=== PATIENT | male | born 1970 | race Caucasian/White ===

== ENCOUNTER → 2018-02-14 12:25 | Outpatient (CLI) | payer OTHER, SELFPAY | PROVIDERS: Family Provider Family Medicine; PCP Family Medicine; Visit Provider Family Medicine | DX: M79.642 Pain in left hand (principal); R20.0 Anesthesia of skin; R20.2 Paresthesia of skin | CPT/HCPCS: 95886; 95909 ==

== ENCOUNTER 2019-11-05 17:39 | Emergency (ER) | payer OTHER, SELFPAY ==
[2019-11-05 17:49] VITALS: BP 176/124; PULSE 94; RESP 22; TEMP 37; O2SAT 99
--- NOTE | 2019-11-05 18:15 | DI.RAD.S_ITS ---
PROCEDURE: XR RIBS LT MIN 3V W CXR1V INDICATIONS: rib pain TECHNIQUE: 2 views of the left ribs were acquired, along with a single view chest. COMPARISON: None. FINDINGS: Surgical changes and devices: None. Bones and chest wall: No fractures or dislocations. No suspicious bony lesions. Overlying soft tissues appear unremarkable. Lungs and pleura: No pleural effusions or pneumothorax. Lungs appear clear. Low lung volumes are noted. This causes a crowded appearance to the lung markings and limits evaluation. Mediastinum: Mediastinal contours appear normal. Heart size is normal. IMPRESSION: No displaced rib fractures are seen. No pneumothorax is seen. Dictated by: Lorenzo Clark M.D. on 11/05/2019 at 17:29 Approved by: Lorenzo Clark M.D. on 11/05/2019 at 17:30
[2019-11-05] MEDS: LIDOCAINE PATCH 1 EACH ADH..PATCH TOP (18:34)
[2019-11-05] MEDS: CYCLOBENZAPRINE 10 MG TABLET PO (18:36)
[2019-11-05] MEDS: KETOROLAC 60 MG/2 ML VIAL 30 MG IM (18:37)
[2019-11-05] MEDS: ACETAMINOPHEN 325 MG TABLET 650 MG PO (18:37)
--- NOTE | 2019-11-05 18:44 | PC.NURSE ---
Patient standing up in room, writhing in pain but pleasant. Medicated for pain as ordered. Significant other at bedside and supportive.
--- NOTE | 2019-11-05 18:47 | ED.CHESTPAIN ---
HPI - Chest Pain <MARK Mann - Last Filed: 11/05/19 22:31> General Chief Complaint: Chest Pain Stated Complaint: lt sided rib pain Time Seen by Provider: 11/05/19 17:48 Source: patient Mode of arrival: Ambulatory Limitations: no limitations History of Present Illness HPI narrative: This is a 49-year-old gentleman, nonsmoker, who presents to ED with significant other with nontraumatic left lower anterior and lateral discomfort which increases with movement, by touch, and breathing. Patient reports pain as 9/10 and very sharp and jabbing in character. Patient denies breathing difficulty, chest pain, fever, chills, rash, nausea or vomiting, or cold sweats. Patient reports he had done yard work and moving gravel yesterday. He did not have any pain yesterday but when after work today driving home he was starting to have severe pain. Patient also states his co-worker is self quarantine at this time due to COVID-19. Related Data Previous Rx's Medication Instructions Recorded lamotrigine 200 mg tablet 200 mg PO DAILY #90 tab 12/21/18 ibuprofen 600 mg tablet 600 mg PO Q8HP PRN #100 tab 05/08/19 cyclobenzaprine 10 mg PO BID PRN #10 tab 11/05/19 lidocaine 1 patch TOP DAILY #30 each 11/05/19 tramadol 50 mg PO BID PRN #7 tab 11/05/19 Allergies Allergy/AdvReac Type Severity Reaction Status Date / Time No Known Drug Allergies Allergy Unverified 10/17/19 10:12 Review of Systems <MARK Mann - Last Filed: 11/05/19 22:31> Review of Systems Narrative: General: Denies fever, chills, fatigue, malaise, sweats. HEENT: Denies sinus pain, ear pain, sore throat, difficulty swallowing, dizziness. Respiratory: Denies dyspnea, cough, wheezing, hemoptysis, sputum. Cardiovascular: Denies chest pain, palpitations, orthopnea, edema. Gastrointestinal: Denies nausea, vomiting, abdominal pain, diarrhea, constipation, melena. : Denies dysuria, frequency, incontinence, hematuria, urinary retention. Musculoskeletal: See HPI Skin: Denies rash, skin lesions, or other. Neurologic: Denies weakness, headache, numbness, change in speech, confusion, seizures, incoordination. Psychiatric: No concerning psychosocial issues. 12-point review of systems is negative except for those stated above. Patient History <MARK Mann - Last Filed: 11/05/19 22:31> Social History Smoking Status: Never smoker Smoking Status: Never smoker Substance Use Type: does not use Exam <MARK Mann - Last Filed: 11/05/19 22:31> Narrative Exam Narrative: General appearance: well developed, well nourished, in moderate distress due to pain, standing in the room to cope with discomfort. Head: normocephalic, atraumatic, no scalp lesions, non-tender. ENT: Hearing grossly intact. Nose without bleeding, purulent discharge. Mucous membrane moist, no mucosal lesion. Throat without erythema, tonsillar hypertrophy or exudate. Uvula in midline, airway patent. Neck/Thyroid: neck supple, full range of motion, no visible masses or meningeal signs. No JVD, non-tender without lymphadenopathy. Skin: no suspicious rashes, lesions over visible areas. Warm and dry and appropriate color for ethnicity. Heart: no clubbing, no cyanosis, no edema. S1 and S2 normal. RRR w/o murmurs, clicks, or bruits. Lungs: Breathing even and unlabored her taking shallow breaths due to pain. No stridor. No accessory muscles used. Able to speak in full sentences. Chest: normal shape and expansion. Abdomen: non-obese, non-distended. Neurologic: alert and oriented. Cognitive exam, SHOW HOST OR HOSTESS and PNS grossly intact on informal exam. Psych: good eye contact, normal affect. Initial Vital Signs Initial Vital Signs: Vital Signs Temperature 98.6 F 11/05/19 17:49 Pulse Rate 94 H 11/05/19 17:49 Respiratory Rate 22 11/05/19 17:49 Blood Pressure 176/124 H 11/05/19 17:49 Pulse Oximetry 99 11/05/19 17:49 Chest Chest: normal inspection of the chest, No crepitus, localized rib tenderness with anteroposterior compression, No mass, tenderness (Left lower anterior and lateral chest wall) and No rash <Angie Meza DO - Last Filed: 11/06/19 00:30> Initial Vital Signs Initial Vital Signs: Vital Signs Temperature 98.6 F 11/05/19 17:49 Pulse Rate 94 H 11/05/19 17:49 Respiratory Rate 22 11/05/19 17:49 Blood Pressure 176/124 H 11/05/19 17:49 Pulse Oximetry 99 11/05/19 17:49 Scores <Luke RichHoracioHomeMARK gr - Last Filed: 11/05/19 22:31> GCS Rachael coma scale eye opening: Spontaneous Rachael coma scale verbal response: Orientated Rachael coma scale motor response: Obey commands Miranda coma scale total score: 15 Course <Luke RichMARK Jeong - Last Filed: 11/05/19 22:31> Orders Ordered: ED Orders 11/05/19 18:15 XR ribs LT min 3V w CXR1V Stat Discontinued Medications Acetaminophen (Tylenol) 650 mg PO NOW ONE Stop: 11/05/19 18:16 Last Admin: 11/05/19 18:37 Dose: 650 mg Documented by: TRACY Cyclobenzaprine HCl (Flexeril) 10 mg PO NOW ONE Stop: 11/05/19 18:16 Last Admin: 11/05/19 18:36 Dose: 10 mg Documented by: TRACY Ketorolac Tromethamine (Toradol) 30 mg IM NOW ONE Stop: 11/05/19 18:16 Last Admin: 11/05/19 18:37 Dose: 30 mg Documented by: TRACY Lidocaine (Lidoderm) 1 each TOP NOW ONE Stop: 11/05/19 18:16 Last Admin: 11/05/19 18:34 Dose: 1 each Documented by: TRACY Vital Signs Vital signs: Vital Signs - 8 hr 11/05/19 17:49 11/05/19 19:35 Temperature 98.6 F Pulse Rate 94 H 69 Respiratory Rate 22 19 Blood Pressure 176/124 H Blood Pressure [Right Arm] 170/109 H Pulse Oximetry 99 98 <Angie Meza DO - Last Filed: 11/06/19 00:30> Orders Ordered: ED Orders 11/05/19 18:15 XR ribs LT min 3V w CXR1V Stat Discontinued Medications Acetaminophen (Tylenol) 650 mg PO NOW ONE Stop: 11/05/19 18:16 Last Admin: 11/05/19 18:37 Dose: 650 mg Documented by: TRACY Cyclobenzaprine HCl (Flexeril) 10 mg PO NOW ONE Stop: 11/05/19 18:16 Last Admin: 11/05/19 18:36 Dose: 10 mg Documented by: TRACY Ketorolac Tromethamine (Toradol) 30 mg IM NOW ONE Stop: 11/05/19 18:16 Last Admin: 11/05/19 18:37 Dose: 30 mg Documented by: TRACY Lidocaine (Lidoderm) 1 each TOP NOW ONE Stop: 11/05/19 18:16 Last Admin: 11/05/19 18:34 Dose: 1 each Documented by: TRACY Vital Signs Vital signs: Vital Signs - 8 hr 11/05/19 17:49 11/05/19 19:35 Temperature 98.6 F Pulse Rate 94 H 69 Respiratory Rate 22 19 Blood Pressure 176/124 H Blood Pressure [Right Arm] 170/109 H Pulse Oximetry 99 98 MDM - Chest Pain <MARK Mann - Last Filed: 11/05/19 22:31> Differential Diagnosis Differential diagnosis: Likely fracture of rib, pneumothorax, costochondritis and chest pain Medical Records Data Attestation: I reviewed the patient's medical records. Imaging Data Chest x-ray: Radiologist's Impression: [address] [address] XRay Report Signed Patient: Diego Green [facility]#: [id number] : 1970Acct:[id number] Age/Sex: 49 / MDate of Service: 11/05/19 Loc: ED Accession Number: [id number] Procedure: XR ribs LT min 3V w CXR1V Ordering Provider: Luke Rodriguez PROCEDURE: XR RIBS LT MIN 3V W CXR1V INDICATIONS: rib pain TECHNIQUE: 2 views of the left ribs were acquired, along with a single view chest. COMPARISON: None. FINDINGS: Surgical changes and devices: None. Bones and chest wall: No fractures or dislocations. No suspicious bony lesions. Overlying soft tissues appear unremarkable. Lungs and pleura: No pleural effusions or pneumothorax. Lungs appear clear. Low lung volumes are noted. This causes a crowded appearance to the lung markings and limits evaluation. Mediastinum: Mediastinal contours appear normal. Heart size is normal. IMPRESSION: No displaced rib fractures are seen. No pneumothorax is seen. Dictated by: Lorenzo Clark M.D. on 11/05/2019 at 17:29 Approved by: Lorenzo Clark M.D. on 11/05/2019 at 17:30 MDM Narrative Medical decision making narrative: This is a 49-year-old male who presents to ED with left lower anterior and lateral chest wall tenderness. Patient denies associated cardiac symptoms such as breathing difficulty, nausea/vomiting, cold sweats, lightheadedness. Considered cardiac chest pain but Physical exam is more consistent with musculoskeletal discomfort. Chest wall was tender to palpate by light touch, with movement, and taking deep breaths. Patient worked on yard and moving gravels yesterday with repeated motion. Patient medicated with IM Toradol, Flexeril, Tylenol, lidocaine patch which he finds to be helpful with discomfort discharged to home with prescriptions. Rib and chest x-ray does not show acute findings such as pneumothorax, fracture, pneumonia with normal heart size. Return precautions were discussed with patient and patient verbalized understanding and agreement with the treatment plan. Discharge Plan Departure Patient Disposition: Home Clinical Impression: Rib pain on left side, Costochondritis, acute Discharge Date/Time: 11/05/19 19:50 Instructions: DI for Costochondritis Activity Restrictions/Additional Instructions: You have been diagnosed with [costochondritis. Rib x-ray does not show acute findings in her ribs or lungs. Your blood pressure was elevated in ED. This may due to pain but please follow-up with Dr. Hernandez.]. What to do: *Take your medications as directed. You were treated with IM Toradol, Tylenol, Lidocaine Patch and Flexeril in ED with good result. Please continue to take Tylenol and ibuprofen/Motrin. You can take Tylenol 2 tabs 3 to 4 times a day as needed for pain. Ibuprofen 400-600 mg 3 times a day with food. Please use lidocaine patch on affected site on for 12 hours and off for 12 hours. If lidocaine patch is not covered by her insurance, please buy [id number] 4% lidocaine patch. Please use muscle relaxant Flexeril as needed. If your pain is not well managed with the above medications, you can use tramadol for severe pain. Tramadol and Flexeril may cause drowsiness so please take precaution such as not driving, drink alcohol or operating heavy equipments. Also he can cause constipation so please take appropriate measures. Flexeril, lidocaine,Tramadol have transmitted to [facility] in [facility]. *Follow up with your primary care provider in 2-3 days, call for an appointment. Let them know you were seen in the ED and that we asked you to be seen in follow up. *Return to ED if you have any new, worsening, or concerning symptoms, such as [breathing difficulty, chest pain, unable to tolerate fluids, fever, or any acute concerns]. Prescriptions: New cyclobenzaprine 10 mg tablet 10 mg PO BID PRN (Reason: muscle spasm) Qty: 10 RF: 0 lidocaine 5 % adhesive patch,medicated 1 patch TOP DAILY Qty: 30 RF: 0 tramadol 50 mg tablet 50 mg PO BID PRN (Reason: pain) Qty: 7 RF: 0 No Action lamotrigine [Lamictal] 200 mg tablet 200 mg PO DAILY Qty: 90 RF: 3 ibuprofen 600 mg tablet 600 mg PO Q8HP PRN (Reason: pain) Qty: 100 RF: 2 Referrals: Dawood Hernandez MD [Primary Care Provider] -
[2019-11-05 19:35] VITALS: BP 170/109; PULSE 69; RESP 19; O2SAT 98
== END 2019-11-05 19:50 | disposition home or self-care (01) ==
PROVIDERS: Emergency Provider Nurse Practitioner Family; Family Provider Family Medicine; PCP Family Medicine
DX: R07.81 Pleurodynia (principal); M94.0 Chondrocostal junction syndrome [Tietze]
CPT/HCPCS: 71101; 96372; 99283; J1885

== ENCOUNTER → 2020-02-09 09:26 | Outpatient (CLI) | payer OTHER, SELFPAY ==
[2020-02-09 11:09] LABS: Add Manual Diff / Slide Review NO; Basophils Absolute Auto 0 /uL (0-100); Basophils Percent Auto 0.5 % (0-2); Eosinophils Absolute Auto 200 /uL (0-450); Eosinophils Percent Auto 3.4 % (2-4); Hematocrit 45.6 % (41-53); Hemoglobin 15.8 g/dL (13.5-17.5); Lymphocytes Absolute Auto 2200 /uL (1100-4500); Lymphocytes Percent Auto 34.4 % (25-40); Mean Corpuscular HGB Conc 34.7 % (30-36); Mean Corpuscular Hemoglobin 32.1 PG (26-34); Mean Corpuscular Volume 92.5 fL (80-100); Monocytes Absolute Auto 600 /uL (0-900); Monocytes Percent Auto 9.9 % (3-14); Neutrophils Absolute Auto 3300 /uL (1500-7000); Neutrophils Percent Auto 51.8 % (50-75); Platelet Count 294 X10^3/uL (150-400); Red Blood Cell Count 4.93 X10^6/uL (4.5-5.9); Red Cell Distribution Width 12.9 % (11.6-14.8); White Blood Cell Count 6.3 X10^3/uL (4.5-11.0)
[2020-02-09 11:40] LABS: Alanine Aminotransferase 27 IU/L (<50); Albumin 4.5 g/dL (3.5-5.0); Albumin Globulin Ratio 1.8 (1.0-2.8); Alkaline Phosphatase 47 U/L (38-126); Aspartate Aminotransferase 29 IU/L (17-59); Bilirubin Total 0.6 mg/dL (0.2-1.3); Blood Urea Nitrogen 13 mg/dL (9-20); Calcium 9.8 mg/dL (8.4-10.2); Carbon Dioxide 30 mmol/L (22-32); Chloride 101 mmol/L (98-107); Cholesterol 218 mg/dL (140-199); Estimated Glomerular Filt Rate > 60.0 mL/min (>60); Globulin 2.5 g/dL (1.7-4.1); Glucose 83 mg/dL (70-100); HDL Cholesterol 38 mg/dL (40-60); HEMOLYSIS 24 (0-50); LDL Cholesterol Calculated 157 mg/dL (<100); Potassium 4.6 mmol/L (3.4-5.1); Sodium 138 mmol/L (137-145); Triglycerides 116 mg/dL (35-150)
[2020-02-10 12:38] LABS: SARS CoV19 IgG Negative (Negative)
== END ==
PROVIDERS: Family Provider Family Medicine; PCP Family Medicine; Referring Provider Family Medicine; Visit Provider Family Medicine
DX: S39.012A Strain of muscle, fascia and tendon of lower back, initial encounter (principal); Z03.818 Encounter for observation for suspected exposure to other biological agents ruled out; Z87.898 Personal history of other specified conditions
CPT/HCPCS: 36415; 80053; 80061; 85025; 86769; G0103

== ENCOUNTER → 2020-09-22 16:48 | Outpatient (CLI) | payer OTHER, SELFPAY ==
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
== END ==
PROVIDERS: Family Provider Family Medicine; PCP Family Medicine; Referring Provider Physician Assistant; Visit Provider Physician Assistant
DX: S16.1XXA Strain of muscle, fascia and tendon at neck level, initial encounter (principal); M25.551 Pain in right hip; M54.2 Cervicalgia; V89.2XXA Person injured in unspecified motor-vehicle accident, traffic, initial encounter
CPT/HCPCS: 72040; 73502

== ENCOUNTER → 2020-10-22 08:21 | Outpatient (CLI) | payer OTHER, SELFPAY ==
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
== END ==
PROVIDERS: Family Provider Family Medicine; PCP Family Medicine; Referring Provider Family Medicine; Visit Provider Family Medicine
DX: S39.012D Strain of muscle, fascia and tendon of lower back, subsequent encounter (principal); S73.101D Unspecified sprain of right hip, subsequent encounter; M47.816 Spondylosis without myelopathy or radiculopathy, lumbar region
CPT/HCPCS: 72110

== ENCOUNTER → 2020-11-02 06:39 | Outpatient (CLI) | payer OTHER, SELFPAY ==
--- NOTE | 2020-11-02 06:43 | DI.MRI.S_ITS ---
PROCEDURE: MR LUMBAR SPINE WO CON INDICATIONS: Evaluate back pain with right radiculopathy TECHNIQUE: Noncontrast sagittal T1 spin echo and T2 fast echo, sagittal STIR, axial T1 and T2 fast spin echo through the lumbar spine. In cases with scoliosis, additional coronal T2 fast spin echo may be performed. COMPARISON: None. FINDINGS: Image quality: Excellent. Alignment and Curvature: There is normal bony alignment. Bone Marrow: Marrow is of normal overall signal. No acute vertebral body compression fractures. Spinal Cord: Conus medullaris terminates at the L1 level. Visualized cord demonstrates normal signal and size. Paraspinous Soft Tissues: No paravertebral masses. T12-L1: Normal appearance. L1-L2: Normal appearance. L2-L3: Normal appearance. L3-L4: Loss of disc signal. Minimal, diffuse disc bulge. No central stenosis. Mild left neural foraminal narrowing. No neural compression. L4-L5: Loss of disc signal. Mild, diffuse disc bulge. Small central disc protrusion. Mild bilateral facet hypertrophy. No central stenosis. Mild bilateral neural foraminal narrowing. No neural compression. Fissure noted in the posterior annulus. L5-S1: Loss of disc signal and slight loss of disc height. Mild, diffuse disc bulge. Mild bilateral facet hypertrophy. No central stenosis. Small right foraminal disc protrusion. Disc protrusion abuts and slightly flattens the exiting right L5 nerve root. Moderate bilateral neural foraminal narrowing. Fissure noted in the posterior annulus. IMPRESSION: 1. Multilevel degenerative disc disease. 2. Multilevel facet arthropathy. 3. No severe central canal narrowing. 4. No severe neural foraminal narrowing. 5. Right foraminal L5-S1 disc protrusion which abuts and slightly compresses the exiting right L5 nerve root. Please correlate with clinical data. 6. L4-L5 and L5-S1 disc annulus fissures. Dictated by: Sivan Ta MD, PhD on 11/02/2020 at 10:23 Approved by: Sivan Ta MD, PhD on 11/02/2020 at 10:29
== END ==
PROVIDERS: PCP Family Medicine; Referring Provider Family Medicine; Visit Provider Family Medicine
DX: M51.16 Intervertebral disc disorders with radiculopathy, lumbar region (principal); M51.17 Intervertebral disc disorders with radiculopathy, lumbosacral region; M47.26 Other spondylosis with radiculopathy, lumbar region; M48.061 Spinal stenosis, lumbar region without neurogenic claudication; M48.07 Spinal stenosis, lumbosacral region; S73.101D Unspecified sprain of right hip, subsequent encounter; S39.012D Strain of muscle, fascia and tendon of lower back, subsequent encounter
CPT/HCPCS: 72148

== ENCOUNTER → 2020-11-02 08:09 | Outpatient (CLI) | payer OTHER, SELFPAY ==
[2020-11-02] MEDS: COVID-19 VACC #1, MRNA(MOD) 100 MCG/0.5 ML VIAL IM (08:17)
== END ==
PROVIDERS: PCP Family Medicine; Visit Provider Internal Medicine
DX: Z23 Encounter for immunization (principal)
CPT/HCPCS: 0011A; 91301

== ENCOUNTER → 2020-12-08 07:37 | Outpatient (CLI) | payer OTHER, SELFPAY ==
[2020-12-08] MEDS: COVID-19 VACC #2, MRNA(MOD) 100 MCG/0.5 ML VIAL IM (07:44)
== END ==
PROVIDERS: PCP Family Medicine; Visit Provider Internal Medicine
DX: Z23 Encounter for immunization (principal)
CPT/HCPCS: 0012A; 91301

== ENCOUNTER → 2021-02-15 08:22 | Outpatient (CLI) | payer OTHER, SELFPAY ==
[2021-02-15 12:25] LABS: COVID19 -Nasal RAPID Negative (Negative)
== END ==
PROVIDERS: PCP Family Medicine; Visit Provider Physical Medicine & Rehabilitation
DX: Z20.822 Contact with and (suspected) exposure to COVID-19 (principal)
CPT/HCPCS: 87635; C9803

== ENCOUNTER 2021-02-17 13:47 | Outpatient (CLI) | payer OTHER, SELFPAY ==
[2021-02-17] VITALS (9 sets, daily range): BP systolic 133–175; BP diastolic 92–115; PULSE 80–97; RESP 12–18; TEMP 36.7; O2SAT 93–99
--- NOTE | 2021-02-17 13:51 | DI.RAD.S_ITS ---
PROCEDURE: PAIN L/S TRANSFORAMINAL INJECT INDICATIONS: SPONDYLOSIS COMPARISON: [facility], CR, XR LUMBAR SPINE 2-3V, 10/22/2020, 8:31. [facility], MR, MR LUMBAR SPINE WO CON, 11/02/2020, 7:01. FINDINGS: Fluoroscopic spot filming was performed to verify placement of a spinal needle at the L5-S1 level, as labeled on the films. Appropriate location of the needle tip was confirmed by injection of iodinated contrast. IMPRESSION: No significant intraprocedural abnormality. Dictated by: Lorenzo Clark M.D. on 02/17/2021 at 14:15 Approved by: Lorenzo Clark M.D. on 02/17/2021 at 14:15
[2021-02-17] MEDS: fentaNYL 100 MCG/2 ML INJ 50 MCG IV (14:20)
[2021-02-17] MEDS: IOPAMIDOL 15 ML VIAL 3 ML INJ (14:25)
[2021-02-17] MEDS: BUPIVACAINE 0.25% (PF) VIAL 2 ML INJ (14:25)
[2021-02-17] MEDS: BETAMETHASONE 30 MG/5 ML MDV 6 MG INJ (14:25)
[2021-02-17] MEDS: DEXAMETHASONE 10 MG/ML VIAL 20 MG INJ (14:25)
[2021-02-17] MEDS: MIDAZOLAM 5 MG/5 ML VIAL IV (14:30)
--- NOTE | 2021-02-17 14:40 | P.PCN_ITS ---
Date/Time/Diagnoses Date of procedure: 02/17/21 Time of procedure: 14:40 Pre-procedure diagnosis: FORAMINAL STENOSIS WITH LE SYMPTOMS Post-procedure diagnosis: same Procedure Notes Procedure: 1. FLUOROSCOPICALLY GUIDED CONTRAST CONTROLLED TRANSFORAMINAL EPIDURAL STEROID INJECTION - RIGHT L5/S1 TFESI Indications: Diego is referred by Dr. Solorzano for treatment of Foraminal Stenosis with Right LE Symptoms Physician: Pedro Turk Total Fluoroscopy time (seconds): 12 Total sedation minutes: 13 Complications: none Procedure in detail & Post-procedure care: FINDINGS Foraminal Nerve Root Compression secondary to disc disease and facet hypertrophy DESCRIPTION OF PROCEDURE Following review of allergy and review of potential side effects and complications, including, but not necessarily limited to, infection, allergic reaction, local tissue breakdown, stroke, temporary or permanent nerve injury, paralysis, and possible , the patient indicated that the patient understood and agreed to proceed. An informed consent document was signed by the patient, witnessed by a nurse, and placed in the patient's chart. Additionally, other treatment options including medications, modalities, and physical therapy were reviewed with the patient. After review of previous anaesthesic history and IV conscious sedation the patient was deemed safe to proceed with today?s procedure with IV conscious sedation as ASA class II designation. Safety time-out was performed to confirm patient ID, procedure to be performed and site of procedure. IV sedation was accomplished with a combination of 3mg of Versed and 50mcg of Fentanyl was administered by the RN after DO order, titrated to patient comfort during the course of the procedure while the patient remained responsive to all verbal commands In the prone position following sterile prep and drape of the lumbar region, the right L5/S1 posterior neuroforamen was identified fluoroscopically. The skin was anesthetized via a 25-gauge 1.5-inch needle with 1% lidocaine solution. At this point, a 25-gauge 3.5-inch spinal needle was atraumatically introduced and advanced under fluoroscopic guidance through the posterior right L5/S1 neuroforamen to approximately the anterior aspect of the canal. Depth was confirmed on lateral view. Following negative aspiration, injection of approximately 1.5cc of Isovue 200 under live fluoroscopy in the AP view confirmed excellent flow along the nerve root, into the epidural space without vascular or intrathecal uptake observed Radiological data, including multiple fluoroscopic views of the lumbosacral spine, reveal a spinal needle at the right L5/S1 posterior neuroforamen. Subsequent views show flow of contrast material flowing superiorly and inferiorly along the nerve root confirming epidural flow. Subsequently, a test dose of 1.5 cc of 1% lidocaine solution was administered and patient was observed for two minutes for signs or symptoms of complications, including abdominal pain, shortness of breath, bilateral upper or lower extremity weakness, nausea and vomiting, prior to steroid injection. At this point, a total of 3cc or 20mg of dexamethasone and 6mg of betamethasone was injected without incident. The procedure tolerated the procedure well without signs or symptoms of complications prior to transfer to the recovery area continued monitoring without incident. The patient was then transferred to the recovery area where they were observed for an appropriate time after the injection. The patient reported a VAS score of 7 prior to the procedure and a post- procedure VAS of 0. POST OP INSTRUCTIONS The patient was provided a Pain Log to continue to record their response to the target-specific procedure prior to follow-up visit with their referring physician. Additionally, specific post-injection care instructions and a contact number to our office were provided if concerns arise regarding possible complications associated with the procedure are suspected.
== END 2021-02-17 15:30 | disposition home or self-care (01) ==
LOC: RAD 13:50
PROVIDERS: PCP Family Medicine; Referring Provider Physical Medicine & Rehabilitation; Visit Provider Physical Medicine & Rehabilitation
DX: M48.07 Spinal stenosis, lumbosacral region (principal); M51.17 Intervertebral disc disorders with radiculopathy, lumbosacral region
CPT/HCPCS: 64483; 99152; J0702; J1100; J2250; J3010

== ENCOUNTER → 2021-05-17 09:23 | Outpatient (CLI) | payer OTHER, SELFPAY ==
[2021-05-17 13:23] LABS: COVID19 -Nasal RAPID Negative (Negative)
== END ==
PROVIDERS: PCP Family Medicine; Referring Provider Physical Medicine & Rehabilitation; Visit Provider Physical Medicine & Rehabilitation
DX: Z20.822 Contact with and (suspected) exposure to COVID-19 (principal)
CPT/HCPCS: 87635; C9803

== ENCOUNTER 2021-05-19 07:23 | Outpatient (CLI) | payer OTHER, SELFPAY ==
[2021-05-19] VITALS (9 sets, daily range): BP systolic 151–183; BP diastolic 101–110; PULSE 76–84; RESP 15–20; TEMP 36.6; O2SAT 95–100
--- NOTE | 2021-05-19 07:27 | DI.RAD.S_ITS ---
PROCEDURE: PAIN L INTERLAMINAR/CAUDAL INJ INDICATIONS: SPONDYLOSIS COMPARISON: [facility], XA, PAIN L/S TRANSFORAMINAL INJECT, 02/17/2021, 14:26. FINDINGS: Fluoroscopic spot filming was performed to verify placement of a spinal needle at the L5-S1 level, as labeled on the films. Appropriate location of the needle tip was confirmed by injection of iodinated contrast. IMPRESSION: No significant intraprocedural abnormality. Dictated by: Lorenzo Clark M.D. on 05/19/2021 at 9:49 Approved by: Lorenzo Clark M.D. on 05/19/2021 at 9:50
[2021-05-19] MEDS: MIDAZOLAM 5 MG/5 ML VIAL IV (08:15)
[2021-05-19] MEDS: fentaNYL 100 MCG/2 ML INJ (08:15)
[2021-05-19] MEDS: BUPIVACAINE 0.25% (PF) VIAL 30 ML (08:21)
[2021-05-19] MEDS: IOPAMIDOL 15 ML VIAL INJ (08:21)
[2021-05-19] MEDS: DEXAMETHASONE 10 MG/ML VIAL 20 MG (08:21)
[2021-05-19] MEDS: BETAMETHASONE 30 MG/5 ML MDV (08:22)
--- NOTE | 2021-05-19 08:33 | PM.PROC.IR.1 ---
Date/Time/Diagnoses Date of procedure: 05/19/21 Time of procedure: 08:33 Pre-procedure diagnosis: 1. HNP WITH RADICULAR FEATURES, 2. MULTILEVEL CENTRAL STENOSIS, Post-procedure diagnosis: same Procedure Notes Procedure: 1. FLUOROSCOPICALLY GUIDED CONTRAST CONTROLLED INTERLAMINAR EPIDURAL STEROID INJECTION - L5/S1 Indications: Diego is referred by Dr. Solorzano for treatment of Bilateral Foraminal Stenosis L>R LE symptoms. Physician: Pedro Turk Total Fluoroscopy time (seconds): 5 Total sedation minutes: 12 Complications: none Procedure in detail & Post-procedure care: FINDINGS Multilevel Central Spinal Stenosis with Nerve Root Compression DESCRIPTION OF PROCEDURE Fluoroscopically guided, contrast-controlled L5/S1 translaminar epidural steroid injection. Following review of allergy and review of potential side effects and complications, including, but not necessarily limited to, infection, allergic reaction, local tissue breakdown, temporary as well as permanent nerve injury, paralysis, stroke and possible , the patient indicated that the patient understood and agreed to proceed. An informed consent document was signed by the patient, witnessed by a nurse, and placed in the patient's chart. Additionally, other treatment options including modalities, medications, and physical therapy were reviewed with the patient. After review of previous anaesthesic history and IV conscious sedation the patient was deemed safe to proceed with today?s procedure with IV conscious sedation as ASA class II designation. Safety time-out was performed to confirm patient ID, procedure to be performed and site of procedure. IV sedation was accomplished with a combination of 2mg of Versed and 50mcg of Fentanyl administered by the RN after DO order, titrated to patient comfort during the course of the procedure while the patient remained responsive to all verbal commands. In the prone position, following sterile prep and drape of the lumbar region, the L5/S1 translaminar space was identified fluoroscopically. The skin was anesthetized via a 25-gauge, 1.5-inch needle with 1% lidocaine solution. At this point, a 22-gauge short bevel spinal needle was atraumatically introduced and advanced under fluoroscopic guidance into the region of the L5/S1 translaminar space. Depth was confirmed on lateral view. Radiological data, including multiple fluoroscopic views of the lumbar spine, reveal a spinal needle at the L5/S1 translaminar space. Lateral views then show placement of the needle in the epidural space. Subsequent views show contrast material flowing superiorly and inferiorly in the epidural space. No vascular or intrathecal uptake is observed. At this point, using loss of resistance technique with saline and air, the epidural space was entered. This was confirmed following negative aspiration with injection of approximately 1.5cc of Isovue 200, showing excellent epidural flow without vascular or intrathecal uptake. At this point, 1cc of 1% lidocaine solution combined with 4cc or 20mg of dexamethasone and 12mg of betamethasone was injected without incident. The patent tolerated the procedure without signs of symptoms of complications prior to transfer to the recovery area for further monitoring. The patient was then transferred to the recovery area where they were observed for an appropriate period of time after the injection. The patient reported a VAS score of 6 prior to the procedure and a post-procedure VAS of 0. POST OP INSTRUCTIONS The patient was provided a Pain Log to continue to record their response to the target-specific procedure prior to follow-up visit with their referring physician. Additionally, specific post-injection care instructions and a contact number to our office were provided if concerns arise regarding possible complications associated with the procedure are suspected.
== END 2021-05-19 08:48 | disposition hospice, home (50) ==
LOC: RAD 07:25
PROVIDERS: PCP Family Medicine; Referring Provider Physical Medicine & Rehabilitation; Visit Provider Physical Medicine & Rehabilitation
DX: M51.17 Intervertebral disc disorders with radiculopathy, lumbosacral region (principal); M48.07 Spinal stenosis, lumbosacral region
CPT/HCPCS: 62323; 99152; J0702; J1100; J2250; J3010

== ENCOUNTER 2021-06-08 10:06 | Emergency (ER) | payer OTHER, SELFPAY ==
[2021-06-08] VITALS (9 sets, daily range): BP systolic 155–196; BP diastolic 102–114; PULSE 83–97; RESP 16–21; TEMP 37.1; O2SAT 95–98; BMI 30.8
--- NOTE | 2021-06-08 10:15 | DI.RAD.S_ITS ---
PROCEDURE: XR CHEST 1V INDICATIONS: chest pain TECHNIQUE: One view of the chest was acquired. COMPARISON: [facility], , CHEST 2 VIEW, 12/15/2009, 11:38. FINDINGS: Surgical changes and devices: None. Lungs and pleura: Lungs are clear. No pleural effusions or pneumothorax. Mediastinum: Mediastinal contours appear normal. The cardiac silhouette is upper limits of normal. Bones and chest wall: No suspicious bony lesions. Overlying soft tissues appear unremarkable. IMPRESSION: No acute cardiopulmonary abnormality. Dictated by: Vernon Garcia M.D. on 06/08/2021 at 10:42 Approved by: Vernon Garcia M.D. on 06/08/2021 at 10:43
[2021-06-08 10:44] LABS: Add Manual Diff / Slide Review NO; Basophils Absolute Auto 0 /uL (0-100); Basophils Percent Auto 0.6 % (0-2); Eosinophils Absolute Auto 200 /uL (0-450); Eosinophils Percent Auto 2.4 % (2-4); Hematocrit 45.8 % (41-53); Hemoglobin 15.6 g/dL (13.5-17.5); Lymphocytes Absolute Auto 2100 /uL (1100-4500); Lymphocytes Percent Auto 31.9 % (25-40); Mean Corpuscular HGB Conc 34.1 % (30-36); Mean Corpuscular Hemoglobin 31.1 PG (26-34); Mean Corpuscular Volume 91.1 fL (80-100); Monocytes Absolute Auto 500 /uL (0-900); Monocytes Percent Auto 8.3 % (3-14); Neutrophils Absolute Auto 3800 /uL (1500-7000); Neutrophils Percent Auto 56.8 % (50-75); Platelet Count 302 X10^3/uL (150-400); Red Blood Cell Count 5.03 X10^6/uL (4.5-5.9); Red Cell Distribution Width 13.2 % (11.6-14.8); White Blood Cell Count 6.6 X10^3/uL (4.5-11.0)
[2021-06-08 10:53] LABS: Alanine Aminotransferase 24 IU/L (<50); Albumin 4.6 g/dL (3.5-5.0); Albumin Globulin Ratio 1.7 (1.0-2.8); Alkaline Phosphatase 59 U/L (38-126); Aspartate Aminotransferase 24 IU/L (17-59); BUN Creatinine Ratio 13.2 (6-22); Bilirubin Total 0.6 mg/dL (0.2-1.3); Blood Urea Nitrogen 15 mg/dL (9-20); Calcium 9.3 mg/dL (8.4-10.2); Carbon Dioxide 28 mmol/L (22-32); Chloride 102 mmol/L (98-107); Creatine Kinase 77 U/L (55-170); Estimated Glomerular Filt Rate > 60.0 mL/min (>60); Globulin 2.7 g/dL (1.7-4.1); Glucose 94 mg/dL (70-100); HEMOLYSIS < 15 (0-50); Lipase 46 U/L (23-300); Potassium 4.3 mmol/L (3.4-5.1); Sodium 139 mmol/L (137-145); Total Protein 7.3 g/dL (6.3-8.2)
[2021-06-08 11:05] LABS: Troponin I < 0.012 ng/mL (0.01-0.034)
--- NOTE | 2021-06-08 11:16 | ED.GENADULT ---
HPI - General Adult General Chief complaint: Hypertension Stated complaint: High BP- referred by Dr. Solorzano Time Seen by Provider: 06/08/21 11:15 Source: patient and family Mode of arrival: Ambulatory Limitations: no limitations History of Present Illness HPI narrative: This is a 51-year-old male who presents with hypertension and referred by his primary care offices. Patient states he does not have a known history of hypertension. He had an office visit 3 weeks ago with pain management and he was told it was mildly high. Presented yesterday for shoulder surgery for a torn rotator cuff and biceps tendon and his pressure was 163/113 he received 2 doses of Valium and a dose of pain medication and continued to be elevated so his surgery was canceled. He called Dr. Turner who recommend he monitor and got number such as 173/120 with 3 different causes including an arm cuff. Today he continued to be high and they referred him here. Patient states he has had a mild headache at times but denies any other symptoms. No chest pain, no shortness of breath, no nausea or vomiting. No diaphoresis. No swelling in his extremities. No lightheadedness or passing out. Does have pain in his shoulder secondary to his injury. He has been taking ibuprofen as needed with improvement during the day but difficulty with sleeping. He takes Lamictal daily as an antidepressant. He has had prior orthopedic surgeries but no cardiac history. No allergies to medications. No tobacco, alcohol or illicit. He is accompanied by his today. Dr. Solorzano is his PCP. Related Data Previous Rx's Medication Instructions Recorded ibuprofen 600 mg tablet 600 mg PO Q8HP PRN #100 tab 05/08/19 lamotrigine 200 mg tablet 200 mg PO DAILY #90 tab 02/06/20 (Lamictal) diazepam 10 mg tablet (Valium) 10 mg PO .COMPLEX PRN #10 tab 05/11/21 hydrochlorothiazide 25 mg tablet 25 mg PO DAILY #10 tab 06/08/21 Allergies Allergy/AdvReac Type Severity Reaction Status Date / Time No Known Drug Allergies Allergy Verified 06/08/21 10:28 Review of Systems Review of Systems ROS Unobtainable: All systems reviewed & are unremarkable except as noted in HPI and below Patient History Medical History Back pain with radiculopathy Blepharitis of both upper and lower eyelid of left eye Cyclothymia Herniated nucleus pulposus, L5-S1, right Left shoulder strain Lumbar radiculopathy Other and unspecified hyperlipidemia (03/01/11) Plantar wart, left foot Sprain of right hip Trapezius muscle spasm Work related injury Surgical History H/O hand surgery Social History Smoking Status: Never smoker Smoking Status: Never smoker alcohol intake frequency: 0-2 drinks per day Substance Use Type: does not use Exam Narrative Exam Narrative: GENERAL: Alert and oriented x three, male in mild distress. HEENT: Head normocephalic, atraumatic, EOMI, pupils reactive, face symmetric, moist mucous membranes NECK: Supple, full range of motion CARDIOVASCULAR: Regular rate and rhythm without murmurs, rubs or gallops. RESPIRATORY: Breath sounds equal bilaterally, no wheezes rales or rhonchi. ABDOMEN: Soft, nontender. Normoactive bowel sounds all 4 quadrants. No guarding or rebound, rigidity, no mass : No CVA tenderness EXTREMITIES: Normal range of motion, no edema. Neurovascularly intact NEUROLOGICAL: Cranial nerves II through XII grossly intact. Moving all extremities SKIN: Warm, dry, no petechiae, no rashes or lesions. Initial Vital Signs Initial Vital Signs: Vital Signs Temperature 98.8 F 06/08/21 10:10 Pulse Rate 97 H 06/08/21 10:10 Respiratory Rate 16 06/08/21 10:10 Blood Pressure 196/114 H 06/08/21 10:10 Pulse Oximetry 98 06/08/21 10:10 Scores HEART Score Heart Score history: Slightly Suspicious Heart Score EKG: Non-Specific repolarization disturbance Heart Score Age: 45-64 years old Heart Score risk factors: No known risk factors Heart Score troponin: < or = to normal limit Heart Score Total: 2 Course Orders Ordered: ED Orders 06/08/21 10:15 XR chest 1V Stat EKG-12 Lead Stat 06/08/21 10:30 Complete Blood Count AUTO DIFF Stat Comprehensive Metabolic Panel Stat Lipase Stat Troponin & CK Cardiac Panel Stat Discontinued Medications Hydrochlorothiazide (Hydrochlorothiazide 25 Mg Tablet) 25 mg PO NOW ONE Stop: 06/08/21 11:45 Last Admin: 06/08/21 11:56 Dose: 25 mg Documented by: AUPDIKE Vital Signs Vital signs: Vital Signs - 8 hr 06/08/21 11:00 06/08/21 11:15 06/08/21 11:30 Pulse Rate 91 H 87 87 Respiratory Rate 19 19 20 Blood Pressure 161/107 H 163/110 H 159/105 H Pulse Oximetry 95 95 96 06/08/21 11:45 06/08/21 12:00 06/08/21 12:10 Pulse Rate 87 83 83 Respiratory Rate 21 16 17 Blood Pressure 172/110 H 160/107 H 155/102 H Pulse Oximetry 95 97 97 Medical Decision Making Lab Data Result diagrams: 06/08/21 10:30 06/08/21 10:30 Labs: Lab Results 06/08/21 06/08/21 Range/Units 10:30 10:30 WBC 6.6 (4.5-11.0) X10^3/uL RBC 5.03 (4.5-5.9) X10^6/uL Hgb 15.6 (13.5-17.5) g/dL Hct 45.8 (41-53) % MCV 91.1 (80-100) fL MCH 31.1 (26-34) PG MCHC 34.1 (30-36) % RDW 13.2 (11.6-14.8) % Plt Count 302 (150-400) X10^3/uL Neut % (Auto) 56.8 (50-75) % Lymph % (Auto) 31.9 (25-40) % [place] % (Auto) 8.3 (3-14) % Eos % (Auto) 2.4 (2-4) % Baso % (Auto) 0.6 (0-2) % Neut # (Auto) 3800 (4004-4335) /uL Lymph # (Auto) 2100 (4368-9793) /uL [place] # (Auto) 500 (0-900) /uL Eos # (Auto) 200 (0-450) /uL Baso # (Auto) 0 (0-100) /uL Sodium 139 (137-145) mmol/L Potassium 4.3 (3.4-5.1) mmol/L Chloride 102 (98-107) mmol/L Carbon Dioxide 28 (22-32) mmol/L BUN 15 (9-20) mg/dL Creatinine 1.14 (0.66-1.25) mg/dL Estimated GFR > 60.0 (>60) mL/min BUN/Creatinine Ratio 13.2 (6-22) Glucose 94 (70-100) mg/dL Calcium 9.3 (8.4-10.2) mg/dL Total Bilirubin 0.6 (0.2-1.3) mg/dL AST 24 (17-59) IU/L ALT 24 (<50) IU/L Alkaline Phosphatase 59 (38-126) U/L Total Creatine Kinase 77 (55-170) U/L CK-MB (CK-2) TNP CK-MB (CK-2) Rel Index TNP Troponin I < 0.012 (0.01-0.034) ng/mL Total Protein 7.3 (6.3-8.2) g/dL Albumin 4.6 (3.5-5.0) g/dL Globulin 2.7 (1.7-4.1) g/dL Albumin/Globulin Ratio 1.7 (1.0-2.8) Lipase 46 (23-300) U/L Imaging Data Chest x-ray: Radiologist's Impression: Close Chest X-Ray (Signed) Vernon Garcia - 06/08/21 Injection Lumbar, Sacrum (Signed) Lorenzo Clark - 05/19/21 Injection Lumbar, Sacrum (Signed) Lorenzo Clark - 02/17/21 Lumbar Spine MRI (Signed) Sivan Ta - 11/02/20 Lumbar Spine X-Ray (Signed) Samy Barksdale - 10/22/20 Hip X-Ray (Signed) Bakari Chaves - 09/22/20 Cervical Spine X-Ray (Signed) Lorenzo Clark - 09/22/20 Ribs X-Ray (Signed) Lorenzo Clark - 11/05/[address] [address] XRay Report Signed Patient: Diego Green MR#: [id number] : 1970 Acct:[id number] Age/Sex: 51 / M Date of Service: 06/08/21 Loc: ED Accession Number: [id number] ?? Procedure: XR chest 1V Ordering Provider: Angie Meza D.O. PROCEDURE:? XR CHEST 1V ? INDICATIONS:? chest pain ? TECHNIQUE:? One view of the chest was acquired.? ? COMPARISON:? [facility], , CHEST 2 VIEW, 12/15/2009, 11:38. ? FINDINGS:? ? Surgical changes and devices:? None.? ? Lungs and pleura:? Lungs are clear.? No pleural effusions or pneumothorax.? ? Mediastinum:? Mediastinal contours appear normal.? The cardiac silhouette is upper limits of normal. ? Bones and chest wall:? No suspicious bony lesions.? Overlying soft tissues appear unremarkable.? ? IMPRESSION:? No acute cardiopulmonary abnormality. ? ? Dictated by: Vernon Garcia M.D. on 06/08/2021 at 10:42 ? ? Approved by: Vernon Garcia M.D. on 06/08/2021 at 10:43?? ECG Data Attestation: I personally reviewed and interpreted this ECG as follows: Prior ECG tracings: available for review Interpretation: Sinus rhythm occasional PVC. Left atrial enlargement. Left ventricular hypertrophy. Rate 87 [place] 138 QRS of 90 QTC 438. Patient has prior EKG from 12/15/2009 which does appear similar. MDM Narrative Medical decision making narrative: This is a 51-year-old male who presents with asymptomatic hypertension the exception of occasional mild headaches. Patient states he does not have a known history but over the past several weeks has had elevated numbers even after significant medications for anxiety and pain his blood pressure was still quite elevated yesterday for shoulder surgery and it was canceled. Patient has been monitoring at home it has been elevated regularly and has continued to be elevated here. Patient states he has been told he does have some white coat hypertension but has never had numbers like this or this persistent. Patient is not on any antihypertensives. Labs, EKG and chest x-ray do not show any acute changes. He does have some left ventricular hypertrophy on his EKG but this appears stable from prior in 2009. Plan initiate blood pressure medication and have patient follow-up with primary care for adjustment. He is going to measure his pressures at home and has follow-up appointment tomorrow with Dr. Solorzano his PCP. Discharge Plan Departure Patient Disposition: Home Clinical Impression: Hypertension Instructions: DI for High Blood Pressure Activity Restrictions/Additional Instructions: Follow-up with your physician at your appointment tomorrow. Take blood pressure medication as prescribed. Pres[facility] in [place]. Continue to monitor and keep a log of your blood pressures at least once or twice daily please share with your physician. Good luck with your surgery. I hope you have a successful surgery shortly. Please return for severe headaches, new chest pain, shortness of breath, lightheadedness or passing out, new swelling in your extremities other new or concerning symptoms. Prescriptions: New hydrochlorothiazide 25 mg tablet 25 mg PO DAILY Qty: 10 RF: 0 No Action diazepam [Valium] 10 mg tablet 10 mg PO .COMPLEX PRN (Reason: sedation) Qty: 10 RF: 0 ibuprofen 600 mg tablet 600 mg PO Q8HP PRN (Reason: pain) Qty: 100 RF: 2 Hold Instructions: Home Medication placed on hold at Doctor's office lamotrigine [Lamictal] 200 mg tablet 200 mg PO DAILY Qty: 90 RF: 3 Referrals: Scott Solorzano MD [Primary Care Provider] -
[2021-06-08] MEDS: hydroCHLOROthiazide 25 MG TABLET PO (11:56)
== END 2021-06-08 12:21 | disposition home or self-care (01) ==
PROVIDERS: Emergency Provider Emergency Medicine; PCP Family Medicine
DX: I10 Essential (primary) hypertension (principal); R07.9 Chest pain, unspecified
CPT/HCPCS: 36415; 71045; 80053; 82550; 83690; 84484; 85025; 93005; 99284

== ENCOUNTER 2022-04-25 13:09 | Emergency (ER) | payer OTHER, SELFPAY ==
[2022-04-25 13:20] VITALS: BP 111/76; PULSE 72; RESP 18; TEMP 36.8; O2SAT 99; BMI 30.4
--- NOTE | 2022-04-25 13:59 | DI.RAD.S_ITS ---
PROCEDURE: XR FEMUR RT MIN 2V INDICATIONS: fall TECHNIQUE: 2 views of the femur were acquired. COMPARISON: None. FINDINGS: Bones: No fractures or dislocations. No suspicious bony lesions. Soft tissues: No suspicious soft tissue calcifications or masses. IMPRESSION: No acute radiographic findings. If pain persists, followup imaging in 5-7 days is recommended to exclude occult fracture. Dictated by: Jeanie Laguerre M.D. on 04/25/2022 at 14:37 Approved by: Jeanie Laguerre M.D. on 04/25/2022 at 14:38
--- NOTE | 2022-04-25 16:31 | ED.LOWEXIN ---
HPI - Extremity Injury (Lower) <Sadie Terrell PA-C - Last Filed: 04/25/22 16:36> General Chief Complaint: Extremity Injury, Lower Stated Complaint: R leg pain after fall Time Seen by Provider: 04/25/22 14:22 Source: patient and family Mode of arrival: Wheelchair History of Present Illness HPI Narrative: 51-year-old male presents to the ED with 1 day of right leg pain. Patient states he was trying to reach for his dog to stop the dog from attacking the chickens, when he felt the backside of his right leg strain, felt pain. Patient denies numbness, tingling, weakness. Patient is able to bear weight and walk, although it is painful to bear weight. Related Data Previous Rx's Medication Instructions Recorded ibuprofen 600 mg tablet 600 mg PO Q8HP PRN pain #100 tabs 05/08/19 lamotrigine 200 mg tablet 200 mg PO DAILY #90 tabs 06/09/21 (Lamictal) metoprolol succinate 50 mg 50 mg PO DAILY #90 tabs 06/16/21 tablet,extended release 24 hr hydrochlorothiazide 25 mg tablet 25 mg PO DAILY #90 tabs 10/24/21 losartan 100 mg tablet 100 mg PO DAILY #90 tabs 10/24/21 Allergies Allergy/AdvReac Type Severity Reaction Status Date / Time No Known Drug Allergies Allergy Verified 04/25/22 13:24 Review of Systems <Sadie Terrell PA-C - Last Filed: 04/25/22 16:36> Review of Systems ROS Unobtainable: All systems reviewed & are unremarkable except as noted in HPI and below Constitutional Constitutional: Denies chills, Denies fatigue, Denies fever(s), Denies frequent falls, Denies lethargy and Denies weakness Eyes Eyes: Denies change in vision, Denies eye discharge, Denies irritation and Denies loss of vision ENT Ears, Nose, Mouth, and Throat: Denies change in voice, Denies dizziness, Denies neck pain, Denies sore throat and Denies throat swelling Cardiovascular Cardiovascular: Denies chest pain, Denies irregular heart rhythm, Denies lightheadedness, Denies palpitations, Denies dyspnea, Denies dyspnea on exertion and Denies orthopnea Respiratory Respiratory: Denies cough, Denies dyspnea, Denies dyspnea on exertion and Denies wheezing Gastrointestinal Gastrointestinal: Denies abdominal pain, Denies change in bowel habits, Denies diarrhea, Denies nausea and Denies vomiting Genitourinary Genitourinary: Denies hematuria, Denies flank pain, Denies urinary incontinence and Denies urinary urgency Musculoskeletal Musculoskeletal: Denies back pain, Denies muscle weakness, Denies neck pain, Denies numbness and Denies tingling Comments: Right leg pain Integumentary/Breasts Skin/Breast: Denies pruritus, Denies erythema, Denies rash and Denies wounds Neurologic Neurologic: Denies behavioral changes, Denies confusion, Denies dizziness, Denies frequent falls, Denies loss of vision, Denies numbness, Denies tingling and Denies weakness Psychiatric Psychiatric: Denies anxiety, Denies behavioral changes, Denies confusion, Denies depression, Denies homicidal ideation and Denies suicidal ideation Endocrine Endocrine: Denies fatigue, Denies flushing and Denies palpitations Hematologic/Lymphatic Hematologic/Lymphatic: Denies easy bruising Allergic/Immunologic Allergic/Immunologic: Denies urticaria, Denies throat swelling and Denies wheezing Patient History <Sadie Terrell PA-C - Last Filed: 04/25/22 16:36> Medical History Back pain with radiculopathy Blepharitis of both upper and lower eyelid of left eye Cyclothymia Herniated nucleus pulposus, L5-S1, right Left shoulder strain Lumbar radiculopathy Other and unspecified hyperlipidemia (03/01/11) Plantar wart, left foot Sprain of right hip Trapezius muscle spasm Work related injury Surgical History H/O hand surgery Social History Smoking Status: Never smoker Smoking Status: Never smoker alcohol intake frequency: 0-2 drinks per day Substance Use Type: does not use Exam <Sadie Terrell PA-C - Last Filed: 04/25/22 16:36> Narrative Exam Narrative: Const General:?cooperative, healthy appearing and comfortable [facility] Head:?normal to inspection Ears:?hearing grossly normal bilaterally Nose:?external nose normal Face and sinus:?normal facial exam and sinuses nontender Mouth:?oral mucosae normal Throat:?posterior oropharynx normal Eyes General:?appearance normal, both eyes and all related structures Neck Neck:?normal visual inspection and no lymphadenopathy noted Resp Effort & Inspection:?normal respiratory effort Auscultation:?clear to auscultation bilaterally Cardio Rate:?regular rate Rhythm:?regular rhythm Musculoskeletal No point tenderness to palpation. Patient is able to bear weight and walk. Strength and sensation intact. Full range of motion. Patient is neurovascularly intact. Neuro General:?patient alert, patient awake and patient oriented x3 Initial Vital Signs Initial Vital Signs: Vital Signs Temperature 98.2 F 04/25/22 13:20 Pulse Rate 72 04/25/22 13:20 Respiratory Rate 18 04/25/22 13:20 Blood Pressure 111/76 04/25/22 13:20 Pulse Oximetry 99 04/25/22 13:20 Oxygen Delivery Method 04/25/22 13:20 <Adrienne Guevara DO - Last Filed: 04/26/22 19:09> Initial Vital Signs Initial Vital Signs: Vital Signs Temperature 98.2 F 04/25/22 13:20 Pulse Rate 72 04/25/22 13:20 Respiratory Rate 18 04/25/22 13:20 Blood Pressure 111/76 04/25/22 13:20 Pulse Oximetry 99 04/25/22 13:20 Oxygen Delivery Method 04/25/22 13:20 Course <CHAYO Armijo Last Filed: 04/25/22 16:36> Orders Ordered: ED Orders 04/25/22 13:59 XR femur RT min 2V Stat Vital Signs Vital signs: Vital Signs - 8 hr 04/25/22 13:20 Temperature 98.2 F Pulse Rate 72 Respiratory Rate 18 Blood Pressure 111/76 Pulse Oximetry 99 Oxygen Delivery Method Room Air <DO Horacio Bernabe Last Filed: 04/26/22 19:09> Orders Ordered: ED Orders 04/25/22 13:59 XR femur RT min 2V Stat Vital Signs Vital signs: Vital Signs - 8 hr 04/25/22 13:20 Temperature 98.2 F Pulse Rate 72 Respiratory Rate 18 Blood Pressure 111/76 Pulse Oximetry 99 Oxygen Delivery Method Room Air MDM - Extremity Injury (Lower) <CHAYO Armijo Last Filed: 04/25/22 16:36> Imaging Data Extremity x-ray #1: Radiologist's Impression: PROCEDURE:? XR FEMUR RT MIN 2V ? INDICATIONS:? fall ? TECHNIQUE:? 2 views of the femur were acquired.? ? COMPARISON:? None. ? FINDINGS:? ? Bones:? No fractures or dislocations.? No suspicious bony lesions.? ? Soft tissues:? No suspicious soft tissue calcifications or masses.? ? IMPRESSION:? No acute radiographic findings. If pain persists, followup imaging in 5-7 days is recommended to exclude occult fracture. ? ? Dictated by: Jeanie Laguerre M.D. on 04/25/2022 at 14:37 ? ? Approved by: Jeanie Laguerre M.D. on 04/25/2022 at 14:38 ? MDM Narrative Medical decision making narrative: 51-year-old male presents to the ED with 1 day of right leg pain. Concern for fracture/dislocation versus musculoskeletal sprain/strain. X-ray was obtained which was negative for acute findings. Patient's symptoms likely due to a musculoskeletal sprain/strain of the hamstring. Recommend ibuprofen, cold packs, followed by warm packs, elevation, rest. ED return precautions discussed with patient. Patient verbalized understanding. Discharge Plan Departure Patient Disposition: Home Clinical Impression: Acute leg pain Instructions: DI for Leg Pain Activity Restrictions/Additional Instructions: You were evaluated in the ED today for leg pain. Your x-ray did not show any fracture or dislocations. Your symptoms are likely due to a musculoskeletal sprain/strain. You may use ice for the 1st 24 hours, then transition to warm packs. Please elevate your leg above heart level. You may take ibuprofen to reduce swelling, inflammation, pain. Return to the ED if you experience any numbness, tingling, weakness. Please follow-up with your PCP for further evaluation treatment. Prescriptions: No Action losartan 100 mg tablet 100 mg PO DAILY Qty: 90 3RF hydrochlorothiazide 25 mg tablet 25 mg PO DAILY Qty: 90 3RF ibuprofen 600 mg tablet 600 mg PO Q8HP PRN (Reason: pain) Qty: 100 2RF Hold Instructions: Home Medication placed on hold at Doctor's office lamotrigine [Lamictal] 200 mg tablet 200 mg PO DAILY Qty: 90 3RF metoprolol succinate 50 mg tablet extended release 24 hr 50 mg PO DAILY Qty: 90 3RF Referrals: Scott Solorzano MD [Primary Care Provider] - Visit Report Forms: Patient Portal/API <Adrienne Guevara DO - Last Filed: 04/26/22 19:09> Cosign ED Attending Coslivature Attestation: I was immediately available in the department for consultation. Documentation has been reviewed. I agree with assessment and plan.
== END 2022-04-25 15:12 | disposition home or self-care (01) ==
PROVIDERS: Emergency Provider Student in an Organized Health Care Education/Training Program; PCP Family Medicine
DX: M79.604 Pain in right leg (principal)
CPT/HCPCS: 73552; 99281; 99283

== ENCOUNTER 2023-03-15 12:05 | Day surgery (SDC) | payer OTHER, SELFPAY ==
--- NOTE | 2023-03-15 | PATH_ITS ---
[facility] Accession Number: [id number] No. of containers..01 Tissue . 01 Material submitted: . colon - ASCENDING POLYP . 01 Diagnosis: Ascending Polyp: Serrated lesion, favor sessile serrated adenoma. MRV 03/23/2023 1349 Local . 01 Electronically signed: . Stephanie Ortiz MD, Pathologist NPI- [id number] . 01 Gross description: . ASCENDING POLYP: Received in formalin is 1 fragment(s) of zavala, soft tissue measuring 0.6 x 0.5 x 0.2 cm submitted entirely in 1 cassette(s) /FERDINAND 03/20/2023 1930 Local . 01 Pathologist provided ICD-10: K63.5 . 01 CPT . 605887 Specimen Comment: A courtesy copy of this report has been sent to [phone] Performed at: 01 [facility] [address] [place] [address], [place], [place] [id number] MD Roly Acosta MD Phone: [phone]
[2023-03-15 12:21] VITALS: BMI 31.2
[2023-03-15] MEDS: LACTATED RINGERS 1,000 ML 42 ML IV (12:33)
[2023-03-15 12:34] VITALS: BP 140/92; PULSE 87; RESP 20; TEMP 36.8; O2SAT 97
--- NOTE | 2023-03-15 13:25 | PM.HP.1 ---
History of Present Illness History of Present Illness Date Patient Seen: 03/15/23 Time Patient Seen: 13:25 Chief complaint: Screening Colonoscopy Narrative: Diego is a 52-year-old man who is here for colonoscopy. He has never had 1 before. No family history of colon cancer. [facility] Medical History (Updated 03/15/23 @ 13:26 by Wilfrido Aguirre MD) Back pain with radiculopathy Blepharitis of both upper and lower eyelid of left eye Cyclothymia Herniated nucleus pulposus, L5-S1, right Hypertension Left shoulder strain Lumbar radiculopathy Other and unspecified hyperlipidemia (03/01/11) Plantar wart, left foot Sprain of right hip Trapezius muscle spasm Work related injury Surgical History H/O hand surgery Social History household members: spouse Smoking Status: Never smoker Meds Home Medications and Allergies Home Medications Medication Instructions Recorded Confirmed Type lamotrigine 200 mg tablet 200 mg PO DAILY #90 tabs 07/31/22 09/14/22 Rx (Lamictal) Allergies Allergy/AdvReac Type Severity Reaction Status Date / Time No Known Drug Allergies Allergy Verified 09/14/22 10:06 Exam Vital Signs (past 8 hours): - 03/15/23 12:34 Temperature 98.2 F Pulse Rate 87 Respiratory Rate 20 Blood Pressure 140/92 H Pulse Oximetry 97 Oxygen Delivery Method Room Air Oxygen Delivery Method Room Air Const General: healthy appearing Assessment & Plan Assessment and plan (1) Colon cancer screening: Status: Acute Plan We reviewed the risks and benefits of colonoscopy for colon cancer screening and he would like to proceed.
--- NOTE | 2023-03-15 13:49 | PM.OP.COLON ---
Operative Date/Time/Diagnoses Date of procedure: 03/15/23 Time of procedure: 13:49 Pre-op diagnosis: Colon cancer screening Post-op diagnosis: same Procedure & Clinicians Study performed: Colonoscopy Same procedure as scheduled: Yes Surgeon: Wilfrido Aguirre Procedure Notes Procedure in detail: Surgeon: Wilfrido Aguirre MD Anesthesia: Diego Kennedy CRNA Procedure: The patient was brought to the endoscopy suite, placed in left lateral decubitus position. The patient was connected to monitoring devices. A time-out was performed. Sedation was administered. Once the patient was adequately sedated, a digital rectal exam was performed and was normal. The scope was then inserted and advanced to the cecum where the appendiceal orifice was identified and photographed. The scope was then slowly withdrawn over greater than 6 minutes. The mucosa was thoroughly inspected. A 5 mm polyp was seen in the ascending colon near the hepatic flexure and removed with a cold snare. No other abnormalities were seen. The scope was retroflexed in the rectum. No abnormality was seen in the rectum. The scope was straightened and removed. The patient was awakened and brought to recovery. Scope withdrawal time: 7 minutes Sedation time: 16 minute EBL: 2 mL Findings: 5 mm polyp in the ascending colon Post-procedure Disposition: PACU
[2023-03-15 13:52] VITALS: BP 104/71; PULSE 77; RESP 19; TEMP 36.4; O2SAT 94
[2023-03-15 13:57] VITALS: BP 117/78; PULSE 84; RESP 19; O2SAT 98
[2023-03-15 14:02] VITALS: BP 119/89; PULSE 76; RESP 20; TEMP 36.9; O2SAT 97
[2023-03-15 14:13] VITALS: BP 136/92; PULSE 75; RESP 11; O2SAT 98
== END 2023-03-15 14:26 | disposition home or self-care (01) ==
PROVIDERS: PCP Family Medicine; Referring Provider Surgery; Visit Provider Surgery
PROC: 0DJD8ZZ Inspection of Lower Intestinal Tract, Via Natural or Artificial Opening Endoscopic (ICD-10-PCS; CPT 45378; principal; 2023-03-15 13:15)
DX: Z12.11 Encounter for screening for malignant neoplasm of colon (principal); D12.2 Benign neoplasm of ascending colon
CPT/HCPCS: 45385; J2704

== ENCOUNTER → 2023-12-17 10:10 | Outpatient (CLI) | payer OTHER, SELFPAY ==
--- NOTE | 2023-12-17 10:11 | DI.RAD.S_ITS ---
PROCEDURE: XR FINGER LT MIN 2V INDICATIONS: Left 3rd finger pain at the PIP times 1-1/2 months TECHNIQUE: AP hand, 2 views of the 3rd finger(s) acquired. COMPARISON: None. FINDINGS: Bones: No fractures or dislocations. No suspicious bony lesions. Soft tissues: No suspicious soft tissue calcifications. 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 on 12/17/2023 at 16:40
== END ==
PROVIDERS: PCP Family Medicine; Referring Provider Physician Assistant; Visit Provider Physician Assistant
DX: M79.89 Other specified soft tissue disorders (principal)
CPT/HCPCS: 73140

== ENCOUNTER → 2024-03-04 07:24 | Outpatient (CLI) | payer OTHER, SELFPAY ==
[2024-03-04 07:57] LABS: Add Manual Diff / Slide Review NO; Basophils Absolute Auto 0 /uL (0-100); Basophils Percent Auto 0.7 % (0-2); Eosinophils Absolute Auto 300 /uL (0-450); Eosinophils Percent Auto 6.4 % (2-4); Hematocrit 42.6 % (41-53); Hemoglobin 14.5 g/dL (13.5-17.5); Lymphocytes Absolute Auto 1900 /uL (1100-4500); Lymphocytes Percent Auto 37.6 % (25-40); Mean Corpuscular Hemoglobin 31.4 PG (26-34); Mean Corpuscular Volume 92.4 fL (80-100); Monocytes Absolute Auto 500 /uL (0-900); Monocytes Percent Auto 9.6 % (3-14); Neutrophils Absolute Auto 2300 /uL (1500-7000); Neutrophils Percent Auto 45.7 % (50-75); Platelet Count 320 X10^3/uL (150-400); Red Blood Cell Count 4.61 X10^6/uL (4.5-5.9); White Blood Cell Count 4.9 X10^3/uL (4.5-11.0)
[2024-03-04 08:26] LABS: Alanine Aminotransferase 21 IU/L (<50); Albumin 4.1 g/dL (3.5-5.0); Alkaline Phosphatase 47 U/L (38-126); Aspartate Aminotransferase 24 IU/L (17-59); BUN Creatinine Ratio 10.7 (6-22); Bilirubin Total 0.5 mg/dL (0.2-1.3); Blood Urea Nitrogen 11 mg/dL (9-20); Calcium 8.7 mg/dL (8.4-10.2); Carbon Dioxide 27 mmol/L (22-32); Chloride 106 mmol/L (98-107); Cholesterol 230 mg/dL (140-199); Estimated Glomerular Filt Rate > 60 mL/min (>60); Globulin 2.1 g/dL (1.7-4.1); Glucose 87 mg/dL (70-100); HDL Cholesterol 43 mg/dL (40-60); HEMOLYSIS < 15 (0-50); LDL Cholesterol Calculated 171 mg/dL (<100); Potassium 4.2 mmol/L (3.4-5.1); Sodium 139 mmol/L (137-145); Total Protein 6.2 g/dL (6.3-8.2); Triglycerides 79 mg/dL (35-150)
[2024-03-04 08:59] LABS: TSH w/ Reflex to FT4 0.75 uIU/mL (0.47-4.68)
[2024-03-04 09:00] LABS: Prostate Specific Antigen Scrn 1.69 ng/mL (0.1-4.0)
[2024-03-04 09:59] LABS: Creatinine Urine Random 120.96 mg/dL
[2024-03-04 10:10] LABS: Microalbumin Urine Random < 0.6 mg/dL (0-1.6)
[2024-03-05 03:36] LABS: Apolipoprotein B 125 mg/dL (<90)
== END ==
PROVIDERS: PCP Family Medicine; Referring Provider Family Medicine; Visit Provider Family Medicine
DX: I10 Essential (primary) hypertension (principal); M54.16 Radiculopathy, lumbar region; M54.10 Radiculopathy, site unspecified; F34.0 Cyclothymic disorder; S39.012A Strain of muscle, fascia and tendon of lower back, initial encounter; Z12.5 Encounter for screening for malignant neoplasm of prostate
CPT/HCPCS: 36415; 80053; 80061; 82043; 82172; 82570; 84443; 85025; G0103

== ENCOUNTER 2025-02-05 21:06 | Emergency (ER) | payer OTHER, SELFPAY ==
[2025-02-05 21:12] VITALS: BP 136/89; PULSE 89; RESP 18; TEMP 37.1; O2SAT 97; BMI 28.5
[2025-02-05 23:33] VITALS: BP 132/87; PULSE 89; O2SAT 97
--- NOTE | 2025-02-06 00:05 | ED.SKABFB ---
HPI - Skin/Abscess/Foreign Bdy General Chief complaint: Skin/Abscess/Foreign Body Stated complaint: Infected wound on Lt ankle, spreading body rash. Time Seen by Provider: 02/06/25 00:04 Source: patient Mode of arrival: Ambulatory Limitations: no limitations History of Present Illness HPI narrative: 54-year-old male recently returned from travel to [facility] from a 2 week trip, was wearing boots while in [place], did sustain 'box thorn' puncture through the left boot, with puncture wound skin recalled left anterior distal foreleg. Small puncture wound at the time. Subsequently developed increasing redness and discomfort. Was seen for skin wound infection at local clinic, mentioned recent travel in injury in [place], was started on Augmentin oral antibiotic that he has been taking. Now with increasing redness and some shallow ulcer in the center of the wound. Some scattered occasional red lesions trunk and right lower extremity. MD complaint: rash Related Data Previous Rx's ?Medication ?Instructions ?Recorded lamotrigine 200 mg tablet 200 mg PO DAILY #90 tabs 09/19/23 (Lamictal) losartan 100 1 tab PO DAILY #90 tabs 01/25/24 mg-hydrochlorothiazide 25 mg tablet rosuvastatin 10 mg tablet 10 mg PO DAILY #90 tabs 03/14/24 doxycycline hyclate 100 mg tablet 100 mg PO BID #14 tabs 02/06/25 Allergies Allergy/AdvReac Type Severity Reaction Status Date / Time No Known Drug Allergies Allergy Verified 02/05/25 21:12 Patient History Medical History Hypertension Lumbar radiculopathy Herniated nucleus pulposus, L5-S1, right Back pain with radiculopathy Sprain of right hip Other and unspecified hyperlipidemia (03/01/11) Cyclothymia Plantar wart, left foot Blepharitis of both upper and lower eyelid of left eye Work related injury Trapezius muscle spasm Left shoulder strain Surgical History H/O hand surgery Social History household members: spouse Smoking Status: Never smoker Smoking Status: Never smoker alcohol intake frequency: 0-2 drinks per day Exam Narrative Exam Narrative: GENERAL: Well-developed patient, in mild distress. HEAD: Atraumatic. Normocephalic. EYES: Pupils equal round and reactive. Extraocular motions intact. No scleral icterus. No injection or drainage. ENT: Nose without bleeding, purulent drainage. Throat without erythema, tonsillar hypertrophy or exudate. Airway patent. NECK: Trachea midline. Non tender CARDIOVASCULAR: Regular rate and rhythm without murmurs, gallops, or rubs. RESPIRATORY: Clear to auscultation. Breath sounds equal bilaterally. No wheezes, rales, or rhonchi. GASTROINTESTINAL: Abdomen soft, non-tender, nondistended. EXTREMITIES: Left anterior midline distal foreleg with 3 cm area of erythema with central shallow ulceration. No significant edema. No lymphangitic streaking. BACK: Nontender without deformity or crepitance. No flank tenderness. NEURO: AOx3. Motor functions grossly nonfocal. SKIN: No rash or erythema of visible areas. Left distal foreleg cellulitis changes as above with central small ulcer. Occasionally small erythematous nonvesicular nonpustular non nodular papules right lower extremity and trunk. They did not seem consistent with varicella. They are not particularly morbilliform, not typical for drug rash. Not associated with hair follicles. Initial Vital Signs Initial Vital Signs: Vital Signs Temperature 98.7 F 02/05/25 21:12 Pulse Rate 89 02/05/25 21:12 Respiratory Rate 18 02/05/25 21:12 Blood Pressure 136/89 02/05/25 21:12 Pulse Oximetry 97 02/05/25 21:12 Oxygen Delivery Method Room Air 02/05/25 21:12 Course Orders Ordered: ED Orders 02/06/25 00:16 XR tibia fibula LT 2V Stat 02/06/25 01:00 CBC Auto Diff [Complete Blood Count AUTO DIFF] Stat CMP [Comprehensive Metabolic Panel] Stat CRP [C-Reactive Protein Quant] Stat ESR [Erythrocyte Sedimentation Rate] Stat Lactate (Lactic Acid) Stat Procalcitonin Stat 02/06/25 01:10 Blood Culture Stat Discontinued Medications Doxycycline Hyclate (Doxycycline Hyclate 100 Mg Tablet) 100 mg PO NOW ONE Stop: 02/06/25 00:14 Last Admin: 02/06/25 01:16 Dose: 100 mg Documented By: AB Vital Signs Vital signs: Vital Signs - 8 hr 02/05/25 23:33 02/05/25 23:33 02/06/25 00:39 Pulse Rate 89 84 Blood Pressure 132/87 Pulse Oximetry 97 98 Oxygen Delivery Method 02/06/25 00:40 02/06/25 00:40 02/06/25 01:00 Pulse Rate 84 89 Blood Pressure 121/80 Pulse Oximetry 98 97 Oxygen Delivery Method Room Air 02/06/25 01:30 02/06/25 02:00 Pulse Rate 85 81 Blood Pressure Pulse Oximetry 96 96 Oxygen Delivery Method Room Air Room Air MDM - Skin/Abscess/Foreign Bdy Lab Data Attestation: I reviewed the patient's lab results. Lab results narrative: White blood cell count 6400, hemoglobin 13.9, platelets adequate. Glucose 102. Normal renal function. Unremarkable electrolytes. Slight ALT, other liver functions unremarkable. Lactate 0.8 normal. CRP not elevated. ESR not elevated. 02/06/25 01:00 02/06/25 01:00 Labs: Lab Results 02/06/25 Range/Units 01:00 WBC 6.4 (4.5-11.0) X10^3/uL RBC 4.38 L (4.5-5.9) X10^6/uL Hgb 13.9 (13.5-17.5) g/dL Hct 39.8 L (41-53) % MCV 90.8 (80-100) fL MCH 31.7 (26-34) PG MCHC 34.9 (30-36) % RDW 12.6 (11.6-14.8) % Plt Count 304 (150-400) X10^3/uL Neut % (Auto) 54.6 (50-75) % Lymph % (Auto) 32.1 (25-40) % [place] % (Auto) 10.2 (3-14) % Eos % (Auto) 2.6 (2-4) % Baso % (Auto) 0.5 (0-2) % Neut # (Auto) 3500 (3475-9362) /uL Lymph # (Auto) 2100 (0844-8453) /uL [place] # (Auto) 700 (0-900) /uL Eos # (Auto) 200 (0-450) /uL Baso # (Auto) 0 (0-100) /uL ESR 12 (0-15) MM/HR Sodium 137 (137-145) mmol/L Potassium 3.7 (3.4-5.1) mmol/L Chloride 102 (98-107) mmol/L Carbon Dioxide 27 (22-32) mmol/L BUN 17 (9-20) mg/dL Creatinine 1.06 (0.66-1.25) mg/dL Estimated GFR > 60 (>60) mL/min BUN/Creatinine Ratio 16.0 (6-22) Glucose 102 H (70-99) mg/dL Lactate 0.8 (0.7-2.1) mmol/L Calcium 9.1 (8.4-10.2) mg/dL Total Bilirubin 0.7 (0.2-1.3) mg/dL AST 35 (17-59) IU/L ALT 52 H (<50) IU/L Alkaline Phosphatase 71 (38-126) U/L C-Reactive Protein 0.6 (<1.0) mg/dL Total Protein 6.6 (6.3-8.2) g/dL Albumin 4.0 (3.5-5.0) g/dL Globulin 2.6 (1.7-4.1) g/dL Albumin/Globulin Ratio 1.5 (1.0-2.8) Procalcitonin 0.176 (<0.5) ng/mL Imaging Data Extremity x-ray #1: Radiologist's Impression: [address] [address] XRay Report Signed Patient: Diego Green MR#: [id number] : 1970 Acct:[id number] Age/Sex: 54 / M Date of Service: 02/06/25 Loc: ED Accession Number: [id number] Procedure: XR tibia fibula LT 2V Ordering Provider: Ra Huber MD PROCEDURE: XR TIBIA FIBULA LT 2V INDICATIONS: puncture wound from [place] red/swelling TECHNIQUE: 2 views of the tibia and fibula were acquired. COMPARISON: None. FINDINGS: Bones: No fractures or dislocations. No suspicious bony lesions. Soft tissues: No suspicious soft tissue calcifications or masses. No soft tissue air or radiopaque foreign body. IMPRESSION: No soft tissue air. No underlying osseous abnormality. Dictated by: Caryl Santiago M.D. on 02/06/2025 at 0:33 Approved by: Caryl Santiago M.D. on 02/06/2025 at 0:33 MDM Narrative Medical decision making narrative: 54-year-old male with recent travel to [place] and puncture through boot of box thorn plant, with initial small puncture skin wound, subsequently developing increasing erythema and pain. Local clinic started patient on Augmentin. Despite Augmentin antibiotics there there is increasing redness of the area and scattered other red lesions. Afebrile, sirs screen negative. X-ray left tib-fib without obvious foreign body, no fracture or osteomyelitis like changes. See radiology report. Lab data: White blood cell count 6400, hemoglobin 13.9, platelets adequate. Glucose 102. Normal renal function. Unremarkable electrolytes. Slight ALT, other liver functions unremarkable. Lactate 0.8 normal. CRP not elevated. ESR not elevated. Oral doxycycline given for MRSA coverage. Patient encouraged to continue Augmentin for now. Recheck advised with the regular provider on Sunday. Return precautions discussed. Home with family. Discharge Plan Departure Patient Disposition: Home Clinical Impression: Cellulitis of left leg Instructions: DI for Cellulitis -- Adult Activity Restrictions/Additional Instructions: Left distal foreleg cellulitis with small developing shallow ulcer, after thorn puncture injury through a boot in [facility] on vacation recently, starting oral Augmentin antibiotic from outside facility, progression of pain with small wound that is expanding in size, increased redness, small shallow ulcer. Also some scattered skin lesions. Not obviously consistent with drug rash from Augmentin. Concern for spread of infection that might be due to MRSA (methicillin-resistant staph aureus) bacteria that unfortunately would not be treated with Augmentin alone. We will add doxycycline for possible MRSA coverage. First dose doxycycline given in the emergency department. Sent prescription to your pharmacy for further dosing. Wound check advised with your regular doctor on Sunday. Return to this/nearest emergency department for any change worsening symptoms or any concerns prior. Prescriptions: New doxycycline hyclate 100 mg tablet 100 mg PO BID Qty: 14 0RF No Action lamotrigine [Lamictal] 200 mg tablet 200 mg PO DAILY Qty: 90 3RF rosuvastatin 10 mg tablet 10 mg PO DAILY Qty: 90 0RF losartan-hydrochlorothiazide 100-25 mg tablet 1 tab PO DAILY Qty: 90 3RF Referrals: Scott Solorzano MD [Primary Care Provider, Family Practice] Stand Alone Forms: Patient Portal/API
--- NOTE | 2025-02-06 00:16 | DI.RAD.S_ITS ---
PROCEDURE: XR TIBIA FIBULA LT 2V INDICATIONS: puncture wound from [place] red/swelling TECHNIQUE: 2 views of the tibia and fibula were acquired. COMPARISON: None. FINDINGS: Bones: No fractures or dislocations. No suspicious bony lesions. Soft tissues: No suspicious soft tissue calcifications or masses. No soft tissue air or radiopaque foreign body. IMPRESSION: No soft tissue air. No underlying osseous abnormality. Dictated by: Caryl Santiago M.D. on 02/06/2025 at 0:33 Approved by: Caryl Santiago M.D. on 02/06/2025 at 0:33
[2025-02-06 00:39] VITALS: PULSE 84; O2SAT 98
[2025-02-06 00:40] VITALS: BP 121/80; PULSE 84; O2SAT 98
[2025-02-06 01:00] VITALS: PULSE 89; O2SAT 97
[2025-02-06] MEDS: DOXYCYCLINE HYCLATE 100 MG TABLET PO (01:16)
[2025-02-06 01:27] LABS: Add Manual Diff / Slide Review NO; Basophils Absolute Auto 0 /uL (0-100); Basophils Percent Auto 0.5 % (0-2); Eosinophils Absolute Auto 200 /uL (0-450); Eosinophils Percent Auto 2.6 % (2-4); Hematocrit 39.8 % (41-53); Hemoglobin 13.9 g/dL (13.5-17.5); Lymphocytes Absolute Auto 2100 /uL (1100-4500); Lymphocytes Percent Auto 32.1 % (25-40); Mean Corpuscular HGB Conc 34.9 % (30-36); Mean Corpuscular Hemoglobin 31.7 PG (26-34); Mean Corpuscular Volume 90.8 fL (80-100); Monocytes Absolute Auto 700 /uL (0-900); Monocytes Percent Auto 10.2 % (3-14); Neutrophils Absolute Auto 3500 /uL (1500-7000); Neutrophils Percent Auto 54.6 % (50-75); Platelet Count 304 X10^3/uL (150-400); Red Blood Cell Count 4.38 X10^6/uL (4.5-5.9); Red Cell Distribution Width 12.6 % (11.6-14.8); White Blood Cell Count 6.4 X10^3/uL (4.5-11.0)
[2025-02-06 01:30] VITALS: PULSE 85; O2SAT 96
[2025-02-06 02:00] VITALS: PULSE 81; O2SAT 96
[2025-02-06 02:07] LABS: Lactate (Lactic Acid) 0.8 mmol/L (0.7-2.1)
[2025-02-06 02:09] LABS: Alanine Aminotransferase 52 IU/L (<50); Albumin Globulin Ratio 1.5 (1.0-2.8); Alkaline Phosphatase 71 U/L (38-126); Aspartate Aminotransferase 35 IU/L (17-59); Bilirubin Total 0.7 mg/dL (0.2-1.3); Blood Urea Nitrogen 17 mg/dL (9-20); Calcium 9.1 mg/dL (8.4-10.2); Carbon Dioxide 27 mmol/L (22-32); Chloride 102 mmol/L (98-107); Estimated Glomerular Filt Rate > 60 mL/min (>60); Globulin 2.6 g/dL (1.7-4.1); Glucose 102 mg/dL (70-99); HEMOLYSIS < 15 (0-50); Potassium 3.7 mmol/L (3.4-5.1); Sodium 137 mmol/L (137-145); Total Protein 6.6 g/dL (6.3-8.2)
[2025-02-06 02:25] LABS: Procalcitonin 0.176 ng/mL (<0.5)
[2025-02-06 02:57] LABS: C-Reactive Protein Quant 0.6 mg/dL (<1.0)
[2025-02-06 03:08] LABS: Erythrocyte Sedimentation Rate 12 MM/HR (0-15)
== END 2025-02-06 02:58 | disposition home or self-care (01) ==
PROVIDERS: Emergency Provider Emergency Medicine; PCP Family Medicine
DX: L03.116 Cellulitis of left lower limb (principal)
CPT/HCPCS: 36415; 73590; 80053; 83605; 84145; 85025; 85651; 86140; 87040; 99283; 99284

== ENCOUNTER → 2025-03-05 12:59 | Outpatient (CLI) | payer OTHER, SELFPAY ==
--- NOTE | 2025-03-05 13:00 | DI.RAD.S_ITS ---
PROCEDURE: XR LUMBAR SPINE MIN 4V INDICATIONS: Chronic low back pain TECHNIQUE: 5 views of the lumbar spine were acquired, including bilateral oblique views. COMPARISON: [facility], , XR LUMBAR SPINE 2-3V, 10/22/2020, 8:31. FINDINGS: Bones: 5 nonrib-bearing vertebrae are present. There is scattered trace retrolisthesis. Multilevel disc and foraminal narrowing most severe at L5-S1. No vertebral body compression fractures. No suspicious bony lesions. Soft tissues: Overlying bowel gas pattern is normal. No suspicious soft tissue calcifications. Oblique images: No pars defects. IMPRESSION: Degenerative changes most prominent at L5-S1 slightly progressive compared to prior exam. Dictated by: Caryl Santiago M.D. on 03/05/2025 at 20:30 Approved by: Caryl Santiago M.D. on 03/05/2025 at 20:31
== END ==
PROVIDERS: PCP Family Medicine; Referring Provider Family Medicine; Visit Provider Family Medicine
DX: M47.27 Other spondylosis with radiculopathy, lumbosacral region (principal); I10 Essential (primary) hypertension; E78.5 Hyperlipidemia, unspecified
CPT/HCPCS: 72110

== ENCOUNTER → 2025-03-13 08:11 | Outpatient (CLI) | payer OTHER, SELFPAY ==
[2025-03-13 08:51] LABS: Add Manual Diff / Slide Review NO; Hematocrit 44.2 % (41-53); Hemoglobin 15.1 g/dL (13.5-17.5); Lymphocytes Absolute Auto 2200 /uL (1100-4500); Mean Corpuscular HGB Conc 34.0 % (30-36); Mean Corpuscular Hemoglobin 31.5 PG (26-34); Mean Corpuscular Volume 92.5 fL (80-100); Platelet Count 319 X10^3/uL (150-400)
[2025-03-13 09:09] LABS: Alanine Aminotransferase 21 IU/L (<50); Albumin 4.3 g/dL (3.5-5.0); Albumin Globulin Ratio 1.9 (1.0-2.8); Alkaline Phosphatase 51 U/L (38-126); Blood Urea Nitrogen 18 mg/dL (9-20); Calcium 9.3 mg/dL (8.4-10.2); Carbon Dioxide 26 mmol/L (22-32); Chloride 105 mmol/L (98-107); Cholesterol 251 mg/dL (140-199); Estimated Glomerular Filt Rate > 60 mL/min (>60); Globulin 2.3 g/dL (1.7-4.1); Glucose 90 mg/dL (70-99); HDL Cholesterol 43 mg/dL (40-60); HEMOLYSIS < 15 (0-50); Potassium 4.5 mmol/L (3.4-5.1); Sodium 138 mmol/L (137-145); Total Protein 6.6 g/dL (6.3-8.2); Triglycerides 77 mg/dL (35-150)
[2025-03-13 09:41] LABS: TSH w/ Reflex to FT4 0.62 uIU/mL (0.47-4.68)
== END ==
PROVIDERS: PCP Family Medicine; Referring Provider Family Medicine; Visit Provider Family Medicine
DX: I10 Essential (primary) hypertension (principal); M54.16 Radiculopathy, lumbar region; M54.10 Radiculopathy, site unspecified; Z12.5 Encounter for screening for malignant neoplasm of prostate; E78.5 Hyperlipidemia, unspecified
CPT/HCPCS: 36415; 80053; 80061; 82172; 84443; 85025; G0103

== ENCOUNTER → 2025-07-06 15:09 | Outpatient (CLI) | payer OTHER, SELFPAY ==
--- NOTE | 2025-07-06 15:11 | DI.MRI.S_ITS ---
PROCEDURE: MR LUMBAR SPINE WO CON INDICATIONS: Low back pain radiating to the right lower limb TECHNIQUE: Noncontrast sagittal T1 spin echo and T2 fast echo, sagittal STIR, and T2 fast spin echo through the lumbar spine. In cases with scoliosis, additional coronal T2 fast spin echo may be performed. COMPARISON: [facility], MR, MR LUMBAR SPINE WO CON, 11/02/2020, 7:01. FINDINGS: Image quality: Excellent. Alignment and Curvature: Straightening of the normal lumbar lordosis. Mild levocurvature. Bone Marrow: Marrow is of normal overall signal. No acute vertebral body compression fractures. Spinal Cord: Conus medullaris terminates at the T12-L1 level. Visualized cord demonstrates normal signal and size. Paraspinous Soft Tissues: No paravertebral masses. Stable right renal simple cyst. T12-L1: Normal appearance. L1-L2: Normal appearance. L2-L3: Normal appearance. L3-L4: Disc desiccation and mild disc bulge. Mild facet arthropathy. No central canal stenosis. Left and no right neural foraminal stenosis, similar compared to prior. L4-L5: Disc desiccation and mild disc bulge. Small central disc protrusion with posterior annular tear. Facet arthropathy. No significant central canal stenosis. Mild bilateral neural foraminal stenosis is stable. L5-S1: Disc desiccation and diffuse disc bulge with superimposed left paracentral disc protrusion with posterior annular tear. Facet arthropathy. No significant central canal stenosis. At least moderate bilateral neural foraminal stenosis is stable. IMPRESSION: 1. Multilevel degenerative changes of the lumbar spine are not significantly changed compared to prior. 2. No significant central canal stenosis. 3. At least moderate bilateral neural foraminal stenosis at L5-S1. Dictated by: Aniceto Funk M.D. on 07/06/2025 at 16:19 Approved by: Aniceto Funk M.D. on 07/06/2025 at 16:24
== END ==
LOC: MRI 15:10
PROVIDERS: PCP Family Medicine; Referring Provider Physical Medicine & Rehabilitation; Visit Provider Physical Medicine & Rehabilitation
DX: M51.16 Intervertebral disc disorders with radiculopathy, lumbar region (principal); M51.17 Intervertebral disc disorders with radiculopathy, lumbosacral region; M48.061 Spinal stenosis, lumbar region without neurogenic claudication; M48.07 Spinal stenosis, lumbosacral region; M47.26 Other spondylosis with radiculopathy, lumbar region; M47.27 Other spondylosis with radiculopathy, lumbosacral region; M51.A3 Intervertebral annulus fibrosus defect, lumbosacral region, unspecified size
CPT/HCPCS: 72148